=== PATIENT | female | born 1975 | race Asian ===

== ENCOUNTER 2017-07-14 17:59 | Emergency (ER) | payer OTHER ==
[2017-07-14 18:05] VITALS: RESP 16
[2017-07-14] MEDS ORDERED: TDAP ADULT 0.5 ML INJ (BOOSTRIX) IM ONE (18:29)
--- NOTE | 2017-07-14 18:29 | EDPHY ---
H & P Time Seen by Provider: 07/14/17 18:14 HPI/ROS: CHIEF COMPLAINT: Dog bite left leg HISTORY OF PRESENT ILLNESS: 41-year-old female presents to the emergency department by private vehicle after she was bit by a dog while working. The patient works at [employer] and was in the the residence dogs bit her in her left ankle. The incident happened at 4:30 a.m. this afternoon. The patient is overdue for a tetanus shot. She is unsure if the dog is current on rabies vaccination. No treatment at home or work. ROS: Denies numbness or tingling in her toes, pain in her left calf or knee. Past Medical/Surgical History: Left oophorectomy Social History: Works at [employer] Smoking Status: Never smoked Physical Exam: On examination the patient has 2 very small superficial puncture wound to the posterior aspect of her left ankle just above the left Achilles tendon the posterior aspect of her left lower leg. No active bleeding noted. No palpable bony tenderness. Full range of motion of her left ankle. No active bleeding noted. No evidence of retained foreign body. No surrounding redness or signs of infection. Constitutional: Initial Vital Signs Temperature (C) 36.6 C 07/14/17 18:01 Heart Rate 79 07/14/17 18:01 Respiratory Rate 16 07/14/17 18:01 Blood Pressure 146/90 H 07/14/17 18:01 O2 Sat (%) 96 07/14/17 18:01 O2 Delivery Mode Room Air Allergies/Adverse Reactions: No Known Allergies Allergy (Unverified 07/14/17 18:00) Home Medications: Medication Instructions Recorded Amoxicillin/Clavulanate Pot 875 mg PO BID #10 tab 07/14/17 [Augmentin 875 mg tab] Losartan Potassium 07/14/17 MDM/Departure - MDM ED Course/Re-evaluation: 41-year-old female presents with dog bite to her left ankle. The wound was thoroughly cleansed. No sutures required. Patient was given a tetanus shot today in the emergency department. Animal Control has been contacted and will inquire about rabies vaccination of the dog. Patient will be started on Augmentin to prevent infection. She was given wound care precautions. - Depart Disposition: Home, Routine, Self-Care Clinical Impression: Dog bite of left lower leg Qualifiers: Encounter type: initial encounter Qualified Code(s): S81.852A - Open bite, left lower leg, initial encounter Condition: Good Instructions: Animal Bite (ED), Acute Wounds (ED) Additional Instructions: Augmentin 875mg twice daily for 5 days to prevent infection. Ibuprofen 600 mg every 8 hr as needed for pain. Return to the emergency department if he notices any signs or symptoms of infection such as redness, swelling, increased pain, fever, purulent drainage. Your given a tetanus shot today in the emergency department. Please document this for your records. Prescriptions: Amoxicillin/Clavulanate Pot [Augmentin 875 mg tab] 875 mg PO BID #10 tab Referrals: OLMAN SAEED MD [Primary Care Provider] - As per Instructions
[2017-07-14 18:46] VITALS: BP 120/87; PULSE 86; TEMP 98.2; O2SAT 97
== END 2017-07-14 19:11 | disposition home or self-care (01) ==
DX: S81.852A Open bite, left lower leg, initial encounter (principal); Z23 Encounter for immunization; W54.0XXA Bitten by dog, initial encounter; Y92.69 Other specified industrial and construction area as the place of occurrence of the external cause; Y99.0 Civilian activity done for income or pay